=== PATIENT | male | born 1955 | race Caucasian/White ===

== ENCOUNTER 2021-05-12 12:50 | Outpatient (CLI) | payer MEDICARE ==
[2021-05-13 00:41] LABS: SARS-CoV-2 PCR by NAA Not Detected (NotDetected)
== END 2021-05-12 12:51 | disposition home or self-care (01) ==
LOC: CSHLAB 12:50
PROVIDERS: ATTEND Internal Medicine
DX: Z20.822 Contact with and (suspected) exposure to COVID-19 (principal); R06.09 Other forms of dyspnea
CPT/HCPCS: U0003; U0005

== ENCOUNTER 2021-05-16 12:44 | Outpatient (CLI) | payer MEDICARE | END 2021-05-16 12:45 | disposition home or self-care (01) | LOC: CSHCP 12:44 | PROVIDERS: ATTEND Internal Medicine | DX: R06.00 Dyspnea, unspecified (principal) | CPT/HCPCS: 94060; 94618; 94726; 94729; 94760 ==

== ENCOUNTER 2022-01-19 12:21 | Outpatient (CLI) | payer MEDICARE | END 2022-01-19 12:22 | disposition home or self-care (01) | LOC: CSHCT 12:21 | PROVIDERS: ATTEND Internal Medicine | DX: R06.09 Other forms of dyspnea (principal); J44.9 Chronic obstructive pulmonary disease, unspecified; J84.9 Interstitial pulmonary disease, unspecified; J81.1 Chronic pulmonary edema | CPT/HCPCS: 71250 ==

== ENCOUNTER 2023-02-03 13:49 | Outpatient (CLI) | payer MEDICARE | END 2023-02-03 13:50 | disposition home or self-care (01) | LOC: CSHCP 13:49 | PROVIDERS: ATTEND Internal Medicine | DX: R06.09 Other forms of dyspnea (principal); J98.4 Other disorders of lung | CPT/HCPCS: 94060; 94664; 94726; 94729; 94760 ==